=== PATIENT | male | born 1980 | race Hispanic/Latino ===

== ENCOUNTER 2022-03-03 13:28 | Emergency (ER) | payer OTHER, SELFPAY | END 2022-03-03 16:00 | disposition home or self-care (01) | LOC: ERS 13:28 | DX: M62.830 Muscle spasm of back (principal); E11.9 Type 2 diabetes mellitus without complications; X50.9XXA Other and unspecified overexertion or strenuous movements or postures, initial encounter; Y92.89 Other specified places as the place of occurrence of the external cause; Y99.0 Civilian activity done for income or pay | CPT/HCPCS: 99283 ==

== ENCOUNTER 2022-03-04 12:58 | Emergency (ER) | payer SELFPAY ==
[2022-03-04] MEDS ORDERED: Ketorolac Tromethamine 30 MG/ML VIAL ONE (14:51)
[2022-03-04] MEDS ORDERED: Dexamethasone 10 MG/ML VIAL ONE (14:52)
[2022-03-04] MEDS ORDERED: Lidocaine 5% Patch TD SCH (15:30)
== END 2022-03-04 15:34 | disposition home or self-care (01) ==
LOC: ERS 12:58
DX: M54.31 Sciatica, right side (principal); E11.9 Type 2 diabetes mellitus without complications; Z79.84 Long term (current) use of oral hypoglycemic drugs
CPT/HCPCS: 96372; 99283; J1100; J1885

== ENCOUNTER 2022-05-06 10:56 | Emergency (ER) | payer OTHER, SELFPAY | END 2022-05-06 13:16 | disposition home or self-care (01) | LOC: ERS 10:56 | DX: L03.011 Cellulitis of right finger (principal); M79.644 Pain in right finger(s); E11.9 Type 2 diabetes mellitus without complications; Z79.84 Long term (current) use of oral hypoglycemic drugs; Z79.899 Other long term (current) drug therapy ==

== ENCOUNTER 2022-05-07 21:50 | Emergency (ER) | payer SELFPAY ==
[2022-05-07] MEDS ORDERED: Ibuprofen 800 MG TAB ONE (23:41)
[2022-05-08] MEDS ORDERED: Lidocaine 1% PF 5 ML VIAL ONE (00:16)
== END 2022-05-08 00:45 | disposition home or self-care (01) ==
LOC: ERS 21:50
DX: L03.011 Cellulitis of right finger (principal); E11.9 Type 2 diabetes mellitus without complications; F17.290 Nicotine dependence, other tobacco product, uncomplicated; Z79.84 Long term (current) use of oral hypoglycemic drugs
CPT/HCPCS: 26011; 87070; 87077; 87186; 87205